=== PATIENT | male | born 1985 | race Caucasian/White ===

== ENCOUNTER 2021-06-29 16:10 | Emergency (ER) | payer SELFPAY ==
[2021-06-29] MEDS ORDERED: cefTRIAXone 1 GM, Lidocaine 1% 2.1 ML IM ONE ×2 (16:53)
--- NOTE | 2021-06-29 16:59 | EDM.PDOC ---
ED HPI GENERAL MEDICAL PROBLEM - General Chief Complaint: Upper Extremity Injury/Pain Stated Complaint: POSS INFECTION IN ELBOW Time Seen by Provider: 06/29/21 16:33 Source of Information: Reports: Patient History Limitations: Reports: No Limitations - History of Present Illness INITIAL COMMENTS - FREE TEXT/NARRATIVE: The patient presents with pain and swelling to his right elbow and forearm. 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 It got red and scabbed over and he felt like it was getting better. Then a few days ago he has more swelling and pain. There is some erythema also. He has no fever or chills. 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 Right Elbow Pain Score (Numeric/FACES): 6 - Related Data Allergies Allergy/AdvReac Type Severity Reaction Status Date / Time No Known Allergies Allergy Verified 06/29/21 16:38 Home Meds: Home Meds cephALEXin [Keflex] 500 mg PO Q6H #40 cap 06/29/21 [Rx] levETIRAcetam [Levetiracetam] 1,000 mg PO BID 06/29/21 [History] Past Medical History Respiratory History: Reports: Other (See Below) Other Respiratory History: seasonal allergies Neurological History: Reports: Seizure - Infectious Disease History Infectious Disease History: Reports: Chicken Pox Social & Family History - Tobacco Use Tobacco Use Status *Q: Never Tobacco User - Caffeine Use Caffeine Use: Reports: Coffee - Recreational Drug Use Recreational Drug Use: No Review of Systems - Review of Systems Review Of Systems: See Below Constitutional: Reports: No Symptoms Eyes: Reports: No Symptoms Ears: Reports: No Symptoms Nose: Reports: No Symptoms Mouth/Throat: Reports: No Symptoms Respiratory: Reports: No Symptoms Cardiovascular: Reports: No Symptoms GI/Abdominal: Reports: No Symptoms Genitourinary: Reports: No Symptoms Musculoskeletal: Reports: Other (Right elbow pain and swelling) ED EXAM, GENERAL - Physical Exam Exam: See Below Exam Limited By: No Limitations General Appearance: Alert, No Apparent Distress Ears: Normal External Exam Nose: Normal Inspection Head: Atraumatic, Normocephalic Neck: Normal Inspection Respiratory/Chest: No Respiratory Distress Extremities: Other (Small ulcer to the right elbow with erythema and edema down into his forearm. Good sensation and pulses distally.) Course - Vital Signs Last Recorded V/S: Last Vital Signs Temp 96.8 F L 06/29/21 16:43 Pulse 71 06/29/21 16:43 Resp 20 06/29/21 16:43 BP 127/79 06/29/21 16:43 Pulse Ox 100 06/29/21 16:43 - Orders/Labs/Meds Orders: Active Orders 24 hr Category Date Time Status cefTRIAXone 1 GM withLidocaine 1% 2.1 ML IM Onetime Med 06/29/21 16:53 Ordered cefTRIAXone [Rocephin] 1 gm Lidocaine 1% [Xylocaine 1%] 2.1 ml IM ONETIME - Re-Assessments/Exams Free Text/Narrative Re-Assessment/Exam: 06/29/21 16:59 I will get him a shot of rocephin and a prescription for some keflex. I will have him follow up with Dr Díaz if he is not better. Departure - Departure Time of Disposition: 17:00 Disposition: Home, Self-Care 01 Condition: Good Clinical Impression: Cellulitis of right arm - Discharge Information *PRESCRIPTION DRUG MONITORING PROGRAM REVIEWED*: Not Applicable *COPY OF PRESCRIPTION DRUG MONITORING REPORT IN PATIENT MALIHA: Not Applicable Prescriptions: cephALEXin [Keflex] 500 mg PO Q6H #40 cap Referrals: Bhupinder Díaz MD [Physician] - 1 Week Additional Instructions: Take the keflex 4 times per day for 10 days. Put warm compresses on your arm for 15 minutes 3 times per day for 5 days. Take tylenol or motrin as needed for pain. Follow up with Dr Díaz if you are not getting better within a week. Please return if you are worse. Sepsis Event Note (ED) - Focused Exam Vital Signs: Vital Signs Temp Pulse Resp BP Pulse Ox 06/29/21 16:43 96.8 F L 71 20 127/79 100 - My Orders Last 24 Hours: My Active Orders 06/29/21 16:53 cefTRIAXone 1 GM withLidocaine 1% 2.1 ML IM Onetime cefTRIAXone [Rocephin] 1 gm Lidocaine 1% [Xylocaine 1%] 2.1 ml IM ONETIME - Assessment/Plan Last 24 Hours: My Active Orders 06/29/21 16:53 cefTRIAXone 1 GM withLidocaine 1% 2.1 ML IM Onetime cefTRIAXone [Rocephin] 1 gm Lidocaine 1% [Xylocaine 1%] 2.1 ml IM ONETIME
== END 2021-06-29 17:15 | disposition home or self-care (01) ==
LOC: JD.ED 16:10
DX: L03.113 Cellulitis of right upper limb (principal); R60.0 Localized edema; L89.019 Pressure ulcer of right elbow, unspecified stage
CPT/HCPCS: 96372; 99283; J0696